=== PATIENT | male | born 1965 | race Two or more races ===

== ENCOUNTER 2024-06-16 12:26 | Emergency (ER) | payer OTHER ==
[~2024-06-16] VITALS: Ht 177.8 cm; Wt 72.6 kg
[2024-06-16] MEDS ORDERED: hydrOXYzine PAMOATE 25 MG CAPSULE PO ONE ×2 (17:36→17:45)
[2024-06-16] MEDS ORDERED: HYDROXYZINE HCL25 MG PO (19:57)
== END 2024-06-16 20:18 | disposition home or self-care (01) ==
LOC: ER 12:28
DX: F41.8 Other specified anxiety disorders (principal); E03.8 Other specified hypothyroidism; E78.49 Other hyperlipidemia